=== PATIENT | female | born 1995 | race American Indian/Alaskan Native ===

== ENCOUNTER 2016-10-18 09:49 | Emergency (ER) | payer SELFPAY ==
[2016-10-18 09:49] VITALS: BMI 17.7
[2016-10-18 10:15] VITALS: TEMP 98.1
[2016-10-18 11:26] VITALS: RESP 18; O2SAT 98
--- NOTE | 2016-10-18 11:34 | ED PDOC ---
Arrival/HPI - General Chief Complaint: Abdominal Pain Time Seen by Provider: 10/18/16 11:17 Historian: Patient - History of Present Illness Narrative History of Present Illness (Text): 10/18/16 11:17 A 21 year old female presents to the emergency department complaining of epigastric abdominal pain since yesterday. Patient notes pain is associated with a mild headache and is worse with movement or deep breathing. Pain is not exacerbated with food. She mentions last week she had diffuse lower abdominal pain for one week but it resolved spontaneously. She denies any back pain, nausea, vomiting, diarrhea, chest pain, shortness of breath, or any other complaints at this time. Patient last menstrual cycle was on 09/24/16 and she states there is a possibility she is . PMD: None Time/Duration: 24 hours Symptom Onset: Sudden Symptom Course: Unchanged Quality: Other ("pain") Activities at Onset: Rest Modifying Factors (Text): worse with deep breathing and movement; no change with food Context: Home Associated Symptoms (Text): mild headache Past Medical History - Provider Review Nursing Documentation Reviewed: Yes - Infectious Disease Hx of Infectious Diseases: None - Hematological/Oncological Hx Anemia: Yes - Psychiatric Hx Psychophysiologic Disorder: No Hx Substance Use: No - Anesthesia Hx Anesthesia: No Hx Anesthesia Reactions: No Hx Malignant Hyperthermia: No Family/Social History - Physician Review Nursing Documentation Reviewed: Yes Family/Social History: No Known Family HX Smoking Status: Never Smoked Hx Alcohol Use: No Hx Substance Use: No Allergies/Home Meds Allergies/Adverse Reactions: Allergies No Known Allergies Allergy (Verified 10/18/16 10:15) Review of Systems - Physician Review All systems were reviewed & negative as marked: Yes - Review of Systems Respiratory: absent: SOB Cardiovascular: absent: Chest Pain Gastrointestinal: Abdominal Pain. absent: Nausea, Vomiting Musculoskeletal: absent: Back Pain Neurological: Headache Physical Exam Vital Signs Reviewed: Yes Vital Signs Temp Pulse Resp BP Pulse Ox 10/18/16 15:20 64 18 116/64 98 10/18/16 13:43 98.1 F 62 18 118/65 98 10/18/16 12:03 64 18 121/63 98 10/18/16 11:25 69 18 122/61 98 10/18/16 10:10 98.1 F 76 16 124/68 100 Temperature: Afebrile Blood Pressure: Normal Pulse: Regular Respiratory Rate: Normal Appearance: Positive for: Well-Appearing, Non-Toxic, Comfortable Pain Distress: None Mental Status: Positive for: Alert and Oriented X 3 - Systems Exam Head: Present: Atraumatic, Normocephalic Pupils: Present: PERRL Extroacular Muscles: Present: EOMI Conjunctiva: Present: Normal Mouth: Present: Moist Mucous Membranes Neck: Present: Normal Range of Motion Respiratory/Chest: Present: Clear to Auscultation, Good Air Exchange. No: Respiratory Distress, Accessory Muscle Use Cardiovascular: Present: Regular Rate and Rhythm, Normal S1, S2. No: Murmurs Abdomen: Present: Tenderness (tenderness with palpation to the epigastric region ), Normal Bowel Sounds. No: Distention, Peritoneal Signs, Rebound, Guarding Back: Present: Normal Inspection Upper Extremity: Present: Normal Inspection. No: Cyanosis, Edema Lower Extremity: Present: Normal Inspection. No: Edema Neurological: Present: GCS=15, CN II-XII Intact, Speech Normal Skin: Present: Warm, Dry, Normal Color. No: Rashes Psychiatric: Present: Alert, Oriented x 3, Normal Insight, Normal Concentration Medical Decision Making ED Course and Treatment: 10/18/16 11:17 Impression: A 21 year old female with epigastric abdominal pain. Differential Diagnosis include but are not limited to: gastritis vs gallstones vs muscular pain Plan: -- EKG -- Urine -- Reassess and disposition Prior Visits: Notes and results from previous visits were reviewed. The patient was last in the emergency department on 02/18/16 for evaluation of left sided abdominal pain. Progress Notes: EKG: Ordered, reviewed, and independently interpreted the EKG. Rate : 72 BPM Rhythm : NSR Interpretation : Normal axis, normal intervals, no ST/T changes. 10/18/16 11:25 Patient is not will order lab work, Urinalysis and abdomen ultrasound. Will give patient Pepcid for abdominal discomfort. 10/18/16 13:15 Abdomen Ultrasound: Creator : Dwayne Willard MD COMPARISON: None. FINDINGS: LIVER: Measures 15.4 cm. Patent portal vein. Portal venous flow: Hepatopetal. Unremarkeable echogenicity of the liver parenchyma. No mass. No intrahepatic bile duct dilatation. GALLBLADDER: Cholelithiasis. Negative study for gallbladder wall thickening, pericholecystic fluid, sonographic Durbin's sign. Incidental finding(s): Gallbladder polyp 4 mm. COMMON BILE DUCT: Measures 3.0 mm. No stones. No dilatation. PANCREAS: Unremarkable as visualized. No mass. No ductal dilatation. RIGHT KIDNEY: Measures 10cm. Normal echogenicity. No calculus, mass, or hydronephrosis. LEFT KIDNEY: Measures 10.4cm. Normal echogenicity. No calculus, mass, or hydronephrosis. SPLEEN: Normal in size and contour. No mass. AORTA: No aneurysmal dilatation. IVC: Unremarkable. OTHER FINDINGS: None. IMPRESSION: Cholelithiasis. No sonographic evidence of acute cholecystitis. 10/18/16 13:56 A Abdomen/Pelvis CT ordered. 10/18/16 16:00 Abdomen/Pelvis CT: Creator : Shiraz Miramontes COMPARISON: Comparison is made to the previous same-day ultrasound of the abdomen. FINDINGS: LOWER THORAX: Unremarkable. LIVER: Unremarkable. No gross lesion or ductal dilatation. GALLBLADDER AND BILE DUCTS: Small gallstones seen without evidence of acute cholecystitis. PANCREAS: Unremarkable. No gross lesion or ductal dilatation. SPLEEN: Unremarkable. ADRENALS: Unremarkable. No mass. KIDNEYS AND URETERS: No evidence of obstructing renal stone. There are foci of high attenuation seen in the renal pyramids suspicious for nephrocalcinosis. Please correlate clinically. No evidence of hydronephrosis or hydroureter. The kidneys are symmetrical in size and shape. VASCULATURE: Unremarkable. No aortic aneurysm. BOWEL: Unremarkable. No obstruction. No gross mural thickening. Mild constipation is noted. APPENDIX: Unremarkable. Normal appendix. PERITONEUM: Unremarkable. No free fluid. No free air. LYMPH NODES: Unremarkable. No enlarged lymph nodes. BLADDER: Unremarkable. REPRODUCTIVE: Unremarkable. BONES: No acute fracture. OTHER FINDINGS: None. IMPRESSION: Small gallstone without evidence of acute cholecystitis. No evidence of obstructing renal calculi. Foci of high attenuation in the kidneys suspicious for possible nephrocalcinosis. Please correlate clinically. Mild constipation. 10/18/16 16:10 On re-evaluation, the patient feels better and is in no acute distress. Pain did not improve with pepcid but did with toradol, suggestive possible muscular ( she did note it is worse with bending and movement). I have discussed the results and plan with the patient, who expresses understanding. Patient in agreement with plan to discharged home. Patient is stable for discharge. Discussed with patient possible nephrocalcinosis and need to f/u medical clinic. Patient was instructed to follow up with physician/clinic in 1-2 days or return if symptoms worsen or new concerning symptoms arise. - Lab Interpretations Lab Results: 10/18/16 11:45 10/18/16 11:45 Lab Results 10/18/16 11:45: WBC 5.1, RBC 4.16, Hgb 10.0 L, Hct 31.9 L, MCV 76.7 L, MCH 24.0 L, MCHC 31.3, RDW 16.7 H, Plt Count 208, MPV 10.6, Gran % 59.1, Lymph % (Auto) 29.2, Turner % (Auto) 8.5 H, Eos % (Auto) 2.4, Baso % (Auto) 0.8, Gran # 2.99, Lymph # 1.5, Turner # 0.4, Eos # 0.1, Baso # 0.04, PT 11.5, INR 1.06, APTT 27.5, Sodium 137, Potassium 3.7, Chloride 104, Carbon Dioxide 24, Anion Gap 13, BUN 13 , Creatinine 0.6, Est GFR ( Amer) > 60, Est GFR (Non-Af Amer) > 60, Random Glucose 86, Calcium 9.3, Total Bilirubin 0.4, AST 21, ALT 18, Alkaline Phosphatase 51, Total Protein 7.2, Albumin 3.9, Globulin 3.3, Albumin/Globulin Ratio 1.2, Amylase 100, Lipase 122, Urine Color Yellow, Urine Appearance Clear, Urine pH 6.0, Ur Specific [place] >= 1.030, Urine Protein 30 H, Urine Glucose ( UA) Negative, Urine Ketones Negative, Urine Blood Large H, Urine Nitrate Negative, Urine Bilirubin Negative, Urine Urobilinogen 0.2, Ur Leukocyte Esterase Negative, Urine RBC 20 - 25, Urine WBC 0 - 2, Ur Epithelial Cells 6 - 8 , Urine Bacteria Many, Urine Other [place]yeast I have reviewed the lab results: Yes - RAD Interpretation Radiology Orders: 10/18/16 11:33 ABDOMEN COMPLETE [US] Stat 10/18/16 13:56 ABD & PELVIS W/O PO OR IV CONT [CT] Stat - Medication Orders Current Medication Orders: Discontinued Medications Famotidine (Pepcid) 20 mg IVP STAT STA Stop: 10/18/16 11:34 Last Admin: 10/18/16 11:45 Dose: 20 MG IVP Administration Document 10/18/16 11:45 SE (Rec: 10/18/16 11:45 SE [id number]) Charges for Administration # of IVP Administrations 1 Ketorolac Tromethamine (Toradol) 30 mg IVP STAT STA Stop: 10/18/16 12:19 Last Admin: 10/18/16 13:10 Dose: 30 MG IVP Administration Document 10/18/16 13:10 SE (Rec: 10/18/16 13:10 SE [id number]) Charges for Administration # of IVP Administrations 1 - Scribe Statement The provider has reviewed the documentation as recorded by the Scribe Karen Amin Provider Scribe Attestation: All medical record entries made by the Scribe were at my direction and personally dictated by me. I have reviewed the chart and agree that the record accurately reflects my personal performance of the history, physical exam, medical decision making, and the department course for this patient. I have also personally directed, reviewed, and agree with the discharge instructions and disposition. Disposition/Present on Arrival - Present on Arrival Any Indicators Present on Arrival: No History of DVT/PE: No History of Uncontrolled Diabetes: No Urinary Catheter: No History of Decub. Ulcer: No History Surgical Site Infection Following: None - Disposition Have Diagnosis and Disposition been Completed?: Yes Diagnosis: Epigastric pain Disposition: HOME/ ROUTINE Disposition Time: 16:10 Patient Plan: Discharge Patient Problems: Current Active Problems Problem Status Diagnosed Epigastric pain Acute Condition: GOOD Discharge Instructions (ExitCare): Gallstones (ED) Additional Instructions: Follow up with the medical clinic to workup possible nephrocalcinosis (finding on CT scan). Follow up also in the surgical clinic regarding gallstone. Avoid fatty and greasy food. Naprosyn for pain. Return to the emergency department if any new concerning symptoms. Prescriptions: Naproxen [Naprosyn] 500 mg PO BID PRN #20 tab PRN Reason: Pain Referrals: [facility] [place]] - Follow up with primary [facility] [Outside] - Follow up with primary
[2016-10-18 12:00] LABS: ADD MANUAL DIFF? NO
[2016-10-18 12:06] LABS: URINE BILIRUBIN NEGATIVE (NEGATIVE); URINE BLOOD LARGE (NEGATIVE); URINE GLUCOSE (UA) NEGATIVE (NEGATIVE); URINE KETONE NEGATIVE (NEGATIVE); URINE LEUKOCYTE ESTERASE NEGATIVE Leu/uL (NEGATIVE); URINE PROTEIN 30 mg/dL (<30 mg/dL); URINE UROBILINOGEN 0.2 E.U./dL (<1 E.U./dL)
[2016-10-18 12:08] LABS: URINE APPEARANCE CLEAR (CLEAR); URINE COLOR YELLOW (YELLOW)
[2016-10-18 12:11] LABS: BASO # 0.04 K/mm3 (0.0-2.0); BASO % 0.8 % (0.0-3.0); EOS # 0.1 (0.0-0.7); EOS % 2.4 % (1.5-5.0); GRAN # 2.99 (1.4-6.5); GRAN % 59.1 % (50.0-68.0); HEMATOCRIT 31.9 % (36.0-48.0); LYMPH # 1.5 (1.2-3.4); LYMPH % 29.2 % (22.0-35.0); MEAN CELL VOLUME 76.7 fL (80.0-105.0); MEAN CORPUSCULAR HGB CONC 31.3 g/dl (31.0-37.0); MEAN PLATELET VOLUME 10.6 fl (7.0-11.0); MONO # 0.4 (0.1-0.6); MONO % 8.5 % (1.0-6.0); PLATELET COUNT 208 10^3/uL (120.0-450.0); RED CELL DISTRIBUTION WIDTH 16.7 % (11.5-14.5); WHITE BLOOD COUNT 5.1 10^3/ul (4.5-11.0)
[2016-10-18 12:16] LABS: ALB/GLOB RATIO 1.2 (1.1-1.8); ALKALINE PHOSPHATASE 51 U/L (38-133); ALT/SGPT 18 U/L (7-56); AMYLASE 100 U/L (35-125); AST/SGOT 21 U/L (15-39); BILIRUBIN,TOTAL 0.4 mg/dL (0.2-1.3); BLOOD UREA NITROGEN 13 mg/dL (7-21); CALCIUM 9.3 mg/dL (8.4-10.5); CARBON DIOXIDE 24 mmol/L (21-33); CHLORIDE 104 mmol/L (98-107); GFR AFRICAN-AMERICAN > 60; GLUCOSE,RANDOM 86 mg/dL (70-110); LIPASE 122 U/L (23-300); POTASSIUM 3.7 mmol/L (3.6-5.0); SODIUM 137 mmol/L (132-148); TOTAL PROTEIN 7.2 g/dL (5.8-8.3)
[2016-10-18 12:18] LABS: URINE BACTERIA MANY (NEG); URINE RBC 20 - 25 /hpf (0-2); URINE WBC 0 - 2 /hpf (0-6)
[2016-10-18 12:21] LABS: INR 1.06 (0.93-1.08); PARTIAL THROMBOPLASTIN TIME 27.5 Seconds (23.7-30.8)
--- NOTE | 2016-10-18 13:15 | US ---
HISTORY: epigastric pain - r/o cholecystitis COMPARISON: None. TECHNIQUE: Sonographic evaluation of the abdomen. FINDINGS: LIVER: Measures 15.4 cm. Patent portal vein. Portal venous flow: Hepatopetal. Unremarkeable echogenicity of the liver parenchyma. No mass. No intrahepatic bile duct dilatation. GALLBLADDER: Cholelithiasis. Negative study for gallbladder wall thickening, pericholecystic fluid, sonographic Durbin's sign. Incidental finding(s): Gallbladder polyp 4 mm. COMMON BILE DUCT: Measures 3.0 mm. No stones. No dilatation. PANCREAS: Unremarkable as visualized. No mass. No ductal dilatation. RIGHT KIDNEY: Measures 10cm. Normal echogenicity. No calculus, mass, or hydronephrosis. LEFT KIDNEY: Measures 10.4cm. Normal echogenicity. No calculus, mass, or hydronephrosis. SPLEEN: Normal in size and contour. No mass. AORTA: No aneurysmal dilatation. IVC: Unremarkable. OTHER FINDINGS: None. IMPRESSION: Cholelithiasis. No sonographic evidence of acute cholecystitis.
[2016-10-18 15:20] VITALS: BP 116/64; PULSE 64
--- NOTE | 2016-10-18 16:01 | CT ---
PROCEDURE: CT Abdomen and Pelvis without intravenous contrast HISTORY: abd pain, hematuria - r/o renal stone COMPARISON: Comparison is made to the previous same-day ultrasound of the abdomen. TECHNIQUE: Axial and reformatted coronal and sagittal CT images of the abdomen and pelvis were obtained without IV or oral contrast administration.. Contrast Dose: 0 Radiation dose: Total exam DLP = 211.88 mGy-cm. FINDINGS: LOWER THORAX: Unremarkable. LIVER: Unremarkable. No gross lesion or ductal dilatation. GALLBLADDER AND BILE DUCTS: Small gallstones seen without evidence of acute cholecystitis. PANCREAS: Unremarkable. No gross lesion or ductal dilatation. SPLEEN: Unremarkable. ADRENALS: Unremarkable. No mass. KIDNEYS AND URETERS: No evidence of obstructing renal stone. There are foci of high attenuation seen in the renal pyramids suspicious for nephrocalcinosis. Please correlate clinically. No evidence of hydronephrosis or hydroureter. The kidneys are symmetrical in size and shape. VASCULATURE: Unremarkable. No aortic aneurysm. BOWEL: Unremarkable. No obstruction. No gross mural thickening. Mild constipation is noted. APPENDIX: Unremarkable. Normal appendix. PERITONEUM: Unremarkable. No free fluid. No free air. LYMPH NODES: Unremarkable. No enlarged lymph nodes. BLADDER: Unremarkable. REPRODUCTIVE: Unremarkable. BONES: No acute fracture. OTHER FINDINGS: None. IMPRESSION: Small gallstone without evidence of acute cholecystitis. No evidence of obstructing renal calculi. Foci of high attenuation in the kidneys suspicious for possible nephrocalcinosis. Please correlate clinically. Mild constipation.
--- NOTE | 2016-10-18 17:45 | CARD ---
APPROVED REPORT EKG Measurement Heart [id number] <Conclusion> Normal sinus rhythm Normal ECG
== END 2016-10-18 16:41 | disposition home or self-care (01) ==
LOC: ED 09:49
DX: R10.13 Epigastric pain (principal)
CPT/HCPCS: 74176; 76700; 80053; 81001; 82150; 83690; 85025; 85610; 85730; 93005; 96374; 96375; 99285; J1885